=== PATIENT | male | born 1995 | race Caucasian/White ===

== ENCOUNTER 2020-02-17 06:00 | Emergency (ER) | payer OTHER ==
[2020-02-17 06:15] VITALS: BP 143/77; PULSE 67
--- NOTE | 2020-02-17 06:22 | EDM.PDOC ---
ED HPI GENERAL MEDICAL PROBLEM - General Chief Complaint: Chest Pain Stated Complaint: SHOULDER AND CHEST PAIN/SOB Time Seen by Provider: 02/17/20 06:22 - History of Present Illness INITIAL COMMENTS - FREE TEXT/NARRATIVE: 24-year-old male presents the emergency room with chest pain. The patient was asleep in bed and he rolled over felt a pop in his chest and then all of a sudden developed this chest discomfort aggravated by deep breathing. Patient has coughed a couple of times and this is very uncomfortable as well patient denies any recent illnesses. Patient did have Covid several months ago. But prior to feeling this pop in his chest he was entirely back to normal. This pain is aggravated by change of position deep breathing. Patient does not have any prior history of chest problems or heart problems he does not have any chronic breathing problems. Left Chest Pain Score (Numeric/FACES): 5 - Related Data Allergies Allergy/AdvReac Type Severity Reaction Status Date / Time No Known Allergies Allergy Verified 02/17/20 06:15 Home Meds: Home Meds . [No Known Home Meds] 02/17/20 [History] Past Medical History Cardiovascular History: Reports: None Respiratory History: Reports: None Gastrointestinal History: Reports: None Genitourinary History: Reports: None [employer] History: Reports: None Musculoskeletal History: Reports: None Neurological History: Reports: None Psychiatric History: Reports: None Endocrine/Metabolic History: Reports: None Hematologic History: Reports: None Immunologic History: Reports: None Oncologic (Cancer) History: Reports: None Dermatologic History: Reports: None - Past Surgical History HEENT Surgical History: Reports: Naso-Sinus Surgery, Other (See Below) Musculoskeletal Surgical History: Reports: Arthroscopic Knee Social & Family History - Caffeine Use Caffeine Use: Reports: None ED ROS GENERAL - Review of Systems Review Of Systems: See Below Constitutional: Reports: No Symptoms HEENT: Reports: No Symptoms Respiratory: Reports: No Symptoms Cardiovascular: Reports: No Symptoms GI/Abdominal: Reports: No Symptoms Neurological: Reports: No Symptoms ED EXAM, GENERAL - Physical Exam Exam: See Below Exam Limited By: No Limitations General Appearance: Alert, No Apparent Distress Head: Atraumatic, Normocephalic Neck: Normal Inspection, Supple, Non-Tender, Full Range of Motion Respiratory/Chest: No Respiratory Distress, Lungs Clear, Normal Breath Sounds, Other (Of the chest reveals some discomfort in the left upper area adjacent to the sternum. This elicits the same pain that brought him in.) Cardiovascular: Regular Rate, Rhythm, No Edema, No Murmur GI/Abdominal: Normal Bowel Sounds, Soft, Non-Tender #1 Interpretation EKG Date: 02/17/20 Rhythm: NSR [place]: Normal P-Wave: Present QRS: Normal ST-T: Normal QT: Normal Comparison: NA - No Prior EKG EKG Interpretation Comments: Normal EKG Course - Vital Signs Last Recorded V/S: Last Vital Signs Temp 36.0 C L 02/17/20 06:10 Pulse 67 02/17/20 06:10 Resp 18 02/17/20 06:10 BP 143/77 H 02/17/20 06:10 Pulse Ox 100 02/17/20 06:10 - Orders/Labs/Meds Orders: Active Orders 24 hr Category Date Time Status EKG 12 Lead [EKG Documentation Completion] [RC] STAT Care 02/17/20 06:26 Active Chest 1V Frontal [CR] Stat Exams 02/17/20 06:50 Taken - Re-Assessments/Exams Free Text/Narrative Re-Assessment/Exam: 02/17/20 07:22 Has a normal chest x-ray and a normal EKG. His history is consistent with him rolling over in bed feeling a pop in his chest and then developing chest discomfort aggravated by deep breathing. Work-up thus far is unremarkable. Discussed the possibility of checking blood work with him but he would like to defer this at this point as everything else is normal which I think is very reasonable. We will discharge at this time Departure - Departure Time of Disposition: 07:22 Disposition: Home, Self-Care 01 Clinical Impression: Chest wall pain Referrals: Enrique Morrison MD [Primary Care Provider] - Forms: ED Department Discharge Additional Instructions: Return to the emergency room with any questions problems or new or worsening symptoms. Use Naprosyn [id number] 220 mg take 1 or 2 with your morning and evening meals, as needed for discomfort. Sepsis Event Note (ED) - Evaluation Sepsis Screening Result: No Definite Risk - Focused Exam Vital Signs: Vital Signs Temp Pulse Resp BP Pulse Ox 02/17/20 06:10 36.0 C L 67 18 143/77 H 100 - My Orders Last 24 Hours: My Active Orders 02/17/20 06:26 EKG 12 Lead [EKG Documentation Completion] [RC] STAT 02/17/20 06:50 Chest 1V Frontal [CR] Stat - Assessment/Plan Last 24 Hours: My Active Orders 02/17/20 06:26 EKG 12 Lead [EKG Documentation Completion] [RC] STAT 02/17/20 06:50 Chest 1V Frontal [CR] Stat
[2020-02-17] MEDS ORDERED: Naproxen 500 MG Tab PO ONE (08:00)
--- NOTE | 2020-02-17 09:29 | CR ---
PROCEDURE INFORMATION: Exam: XR Chest, 1 View Exam date and time: 02/17/2020 6:37 AM Age: 24 years old Clinical indication: Nonspecific chest pain and shortness of breath TECHNIQUE: Imaging protocol: XR of the chest Views: 1 view. COMPARISON: CR Chest 1V Frontal 06/28/2014 5:55 PM FINDINGS: Lungs: No pneumonia or pulmonary edema. Pleural space: No pleural effusion or pneumothorax. Heart/Mediastinum: The cardiac silhouette is not enlarged. The mediastinal contours are normal. Bones/joints: Minimal curvature of the upper thoracic spine convex to the right. IMPRESSION: No acute abnormality. Thank you for allowing us to participate in the care of your patient. Dictated and Authenticated by: Kaden Richardson MD 02/17/2020 8:34 AM Central Time ([place] & [place]) [facility]
== END 2020-02-17 08:25 | disposition home or self-care (01) ==
LOC: JD.ED 06:00
DX: R07.89 Other chest pain (principal)
CPT/HCPCS: 71045; 93005; 99285; A9270; 93010; 99283